=== PATIENT | female | born 1980 | race Two or more races ===

== ENCOUNTER 2019-05-01 18:34 | Emergency (ER) | payer OTHER ==
[~2019-05-01] VITALS: Ht 167.6 cm; Wt 70.3 kg
== END 2019-05-02 03:07 | disposition home or self-care (01) ==
LOC: ER 18:34
DX: K52.9 Noninfective gastroenteritis and colitis, unspecified (principal)

== ENCOUNTER 2019-05-04 02:53 | Emergency (ER) | payer OTHER ==
[~2019-05-04] VITALS: Ht 170.2 cm; Wt 75.3 kg
[2019-05-04] MEDS ORDERED: DIPHENOXYLATE-1 EACH PO (07:22)
[2019-05-04] MEDS ORDERED: LEVSIN/SL0.125 MG SL (07:22)
== END 2019-05-04 07:36 | disposition home or self-care (01) ==
LOC: ER 02:53
DX: K52.9 Noninfective gastroenteritis and colitis, unspecified (principal); E86.0 Dehydration

== ENCOUNTER 2023-09-01 10:07 | Outpatient (CLI) | payer OTHER ==
[~2023-09-01 10:07] MED LIST: DIPHENOXYLATE-1 EACH PO; LEVSIN/SL0.125 MG SL
== END 2023-09-01 10:22 | disposition home or self-care (01) ==
LOC: SONOGRAMA 10:07
PROVIDERS: ATTEND Surgery
DX: C50.212 Malignant neoplasm of upper-inner quadrant of left female breast (principal)

== ENCOUNTER 2023-09-28 08:38 | Outpatient (CLI) | payer OTHER | END 2023-09-28 08:41 | disposition home or self-care (01) | LOC: NUCLEAR 08:38 | PROVIDERS: ATTEND Internal Medicine | DX: C50.412 Malignant neoplasm of upper-outer quadrant of left female breast (principal) ==